=== PATIENT | female | born 2000 | race African-American/Black ===

== ENCOUNTER 2020-08-19 00:32 | Emergency (ER) | payer OTHER ==
--- NOTE | 2020-08-19 01:06 | ER Document Report ---
ED Medical Screen (RME) - General Chief Complaint: Flank Pain Stated Complaint: BLOOD IN URINE,ABDOMINAL PAIN Time Seen by Provider: 08/19/20 01:02 Primary Care Provider: ES GARCIA [Primary Care Provider] - Follow up as needed Notes: HPI: 20-year-old female presenting with pelvic pain, dysuria and hematuria when she wipes over the last week. Also with some left flank pain. Has not had nausea vomiting or diarrhea. Has not had a fever. Patient reports she was on Depo-Provera last year has not had a menstrual cycle anytime she can remember and recently started back becoming sexually active without any other control. Did not take a test prior to coming to the ER. Denies vaginal bleeding or discharge PHYSICAL EXAMINATION: There is no CVA tenderness on palpation. Mild tenderness across the entire pelvis on palpation I have greeted and performed a rapid initial assessment of this patient. A comprehensive ED assessment and evaluation of the patient, analysis of test results and completion of medical decision making process will be conducted by an additional ED providers. Physical Exam - Vital signs Vitals: Temp Pulse Resp BP Pulse Ox 98.2 F 84 15 111/60 99 08/19/20 00:38 08/19/20 00:38 08/19/20 00:38 08/19/20 00:38 08/19/20 00:38 Course - Vital Signs Vital signs: Temp Pulse Resp BP Pulse Ox 98.2 F 84 15 111/60 99 08/19/20 00:38 08/19/20 00:38 08/19/20 00:38 08/19/20 00:38 08/19/20 00:38 Doctor's Discharge - Discharge Referrals: ES GARCIA [Primary Care Provider] - Follow up as needed
[2020-08-19 01:45] LABS: APPEARANCE,URINE CLOUDY; BILIRUBIN,URINE NEGATIVE (NEGATIVE); COLOR,URINE YELLOW; GLUCOSE, URINE NEGATIVE (NEGATIVE); KETONES,URINE NEGATIVE (NEGATIVE); LEUKOCYTE ESTERASE,URINE LARGE (NEGATIVE); NITRITE,URINE NEGATIVE (NEGATIVE); PROTEIN,URINE 100 mg/dL (NEGATIVE); URINE SPECIFIC GRAVITY 1.021; UROBILINOGEN,URINE NEGATIVE mg/dL (<2.0)
[2020-08-19] MEDS ORDERED: CEPHALEXIN 500 MG CAPSULE PO ONE (03:18)
--- NOTE | 2020-08-19 03:22 | ER Document Report ---
HPI - HPI Time Seen by Provider: 08/19/20 01:02 Pain Level: 3 Context: Patient is a 20-year-old female comes emergency department for chief complaint of painful urination, pain in the mid to lower pelvic area in the center, and some blood in the urine when she wipes. Symptoms started 1 week ago. She denies flank pain, nausea, vomiting, fever/chills. Patient was on Depo-Provera previously, states she is slightly late on her menstrual cycle, saw a little bit of brownish vaginal discharge and believes she is about to start. She is also recently sexually active again. She denies abnormal vaginal discharge. She denies any new medications or past medical history otherwise. - CONSTITUTIONAL Constitutional: DENIES: Fever, Chills - EENT EENT: DENIES: Sore Throat, Ear Pain, Eye problems - NEURO Neurology: DENIES: Headache, Weakness, Vision blurred, Dizzinesss / Vertigo - CARDIOVASCULAR Cardiovascular: DENIES: Chest pain - RESPIRATORY Respiratory: DENIES: Trouble Breathing, Coughing - GASTROINTESTINAL Gastrointestinal: REPORTS: Abdominal Pain. DENIES: Black / Bloody Stools - URINARY Urinary: REPORTS: Dysuria, Urgency, Frequency - MUSCULOSKELETAL Musculoskeletal: DENIES: Extremity pain Past Medical History - General Information source: Patient - Social History Smoking Status: Never Smoker Chew tobacco use (# tins/day): No Frequency of alcohol use: Occasional Drug Abuse: None Lives with: Family Family History: Reviewed & Not Pertinent Patient has homicidal ideation: No - Medical History Medical History: Negative Surgical Hx: Negative - Immunizations Immunizations up to date: Yes Hx Diphtheria, Pertussis, Tetanus Vaccination: Yes Vertical Provider Document - CONSTITUTIONAL General Appearance: WD/WN, No Apparent Distress - HEENT HEENT: Atraumatic, Normal ENT Exam, Normocephalic - NECK Neck: Normal Inspection - RESPIRATORY Respiratory: Breath Sounds Normal, No Respiratory Distress - CARDIOVASCULAR Cardiovascular: Regular Rate, Regular Rhythm - GI/ABDOMEN Gastrointestinal: Abdomen Soft. negative: Abdomen Non-Tender - There is mild tenderness mainly over the suprapubic area and minimally over the general pelvic area. No guarding, rebound tenderness, distention, or rigidity. - BACK Back: Normal Inspection. negative: CVA Tenderness-Right, CVA Tenderness-Left - MUSCULOSKELETAL/EXTREMETIES Musculoskeletal/Extremeties: MAEW, FROM, Non-Tender - NEURO Level of Consciousness: Awake, Alert, Appropriate Motor/Sensory: No Motor Deficit, No Sensory Deficit - DERM Integumentary: Warm, Dry, No Rash Course - Re-evaluation Re-evalutation: Patient with dysuria, suprapubic tenderness mainly, urinary tract infection noted, test negative. No signs of distress, no vomiting, fever, current complaints of pain, she states is the worst when she urinates. Nonspecific vaginal discharge that is not discolored per patient. Patient states she is not certain that she was not exposed to an STD recently however. Discussed options. I did offer pelvic exam, eventually patient chose to give urine sample for gonorrhea and chlamydia and if this is positive she'll be contacted at [phone]. Treated for UTI, culture placed, stable and well- appearing without any symptoms at time of discharge. 08/19/20 07:30 Gonorrhea and Chlamydia were both positive. I called patient twice, then I left a message instructing her that her tests were positive and that she and her partner needed to be treated. - Vital Signs Vital signs: Temp Pulse Resp BP Pulse Ox 98.2 F 84 15 111/60 99 08/19/20 01:03 08/19/20 00:38 08/19/20 00:38 08/19/20 00:38 08/19/20 00:38 - Laboratory Laboratory results interpreted by me: 08/19/20 01:15 Urine Protein 100 H Urine Blood LARGE H Ur Leukocyte Esterase LARGE H Discharge - Discharge Clinical Impression: Dysuria, Cystitis Condition: Stable Disposition: HOME, SELF-CARE Additional Instructions: Your evaluation is consistent with a bladder infection (cystitis). Take the antibiotics as prescribed to completion, when you do complete this take the Diflucan to avoid yeast infection. Follow-up with primary care. Return if you worsen including severe worsening pain, vomiting, fever, etc. Prescriptions: Fluconazole [Diflucan] 150 mg PO ONCE PRN #3 tablet PRN Reason: Cephalexin Monohydrate [Keflex 500 mg Capsule] 500 mg PO BID 7 Days #14 capsule Forms: Return to Work
[2020-08-19 03:31] VITALS: BP 104/72
[2020-08-19 07:31] LABS: CHLAM PCR DETECTED (NOT DETECT)
== END 2020-08-19 03:31 | disposition home or self-care (01) ==
LOC: ER 00:32
DX: N30.91 Cystitis, unspecified with hematuria (principal); A54.9 Gonococcal infection, unspecified; A74.9 Chlamydial infection, unspecified
CPT/HCPCS: 81001; 81025; 87086; 87088; 87186; 87491; 87591; 99283

== ENCOUNTER 2020-08-19 09:12 | Emergency (ER) | payer OTHER ==
[2020-08-19 09:23] VITALS: BP 109/69
== END 2020-08-19 09:48 | disposition left against medical advice (07) ==
LOC: ER 09:12
DX: Z53.21 Procedure and treatment not carried out due to patient leaving prior to being seen by health care provider (principal)

== ENCOUNTER 2020-09-29 23:00 | Emergency (ER) | payer OTHER ==
[2020-09-30] MEDS ORDERED: ACETAMINOPHEN 325 MG TABLET PO ONE (00:24)
--- NOTE | 2020-09-30 00:26 | ER Document Report ---
ED Medical Screen (RME) - General Chief Complaint: Facial Injury Stated Complaint: FOREHEAD LACERATION Time Seen by Provider: 09/30/20 00:18 Mode of Arrival: Ambulatory Information source: Patient Notes: HPI; 20-year-old female presents to the emergency room with a laceration to her mid forehead. Patient states she walked into a door hitting her face falling to the ground and passing out. She is complaining of a headache, pain to her face. No meds prior to arrival. States her tetanus is up-to-date. Denies PE: Alert and oriented x3. PERRLA, EOMI 2 cm vertical laceration noted to the front forehead. There is a hematoma noted to the mid frontal forehead. There is tenderness over the nose. There is no obvious deformities noted. No soto signs, no raccoon eyes. Lungs: Clear to auscultation without rales, rhonchi, wheezes. Heart: Regular rate rhythm without murmurs, rubs, gallops. I have greeted and performed a rapid initial assessment of this patient. A comprehensive ED assessment and evaluation of the patient, analysis of test results and completion of the medical decision making process will be conducted by additional ED providers. I have specifically instructed the patient or family members with the patient to immediately return to any nursing staff should anything change in the patient's condition or with their chief complaint. TRAVEL OUTSIDE OF THE [place] IN LAST 30 DAYS: No - Related Data Allergies/Adverse Reactions: No Known Drug Allergies Allergy (Verified 09/30/20 00:23) Past Medical History - Immunizations Immunizations up to date: Yes Hx Diphtheria, Pertussis, Tetanus Vaccination: Yes Physical Exam - Vital signs Vitals: Temp Pulse Resp BP Pulse Ox 98.2 F 80 16 122/68 100 09/29/20 23:03 09/29/20 23:03 09/29/20 23:03 09/29/20 23:03 09/29/20 23:03 Course - Vital Signs Vital signs: Temp Pulse Resp BP Pulse Ox 98.2 F 80 16 122/68 100 09/29/20 23:03 09/29/20 23:03 09/29/20 23:03 09/29/20 23:03 09/29/20 23:03
--- NOTE | 2020-09-30 01:04 | RADIOLOGY REPORT (SQ) ---
CT of the head: 09/30/2020 12:01 AM SAMPLE SUPERVISOR HISTORY: 20-year-old patient with trauma, headache. COMPARISON: None available TECHNIQUE: Multiple axial contiguous images were obtained through the head without intravenous contrast administered. This exam was performed according to our departmental dose-optimization program, which includes automated exposure control, adjustment of the mA and/or KV according to the patient's size and/or use of iterative reconstruction technique. FINDINGS: The ventricles are within normal limits for size. Both globes appear symmetric. The mastoid air cells appear clear. The visualized paranasal sinuses appear clear. The calvarium is intact. No extra-axial fluid collection is seen. The thornton-white matter differentiation is within normal limits. No midline shift or mass effect is apparent. There are no findings to suggest acute intracranial hemorrhage. IMPRESSION: No acute intracranial hemorrhage is seen.
--- NOTE | 2020-09-30 01:07 | RADIOLOGY REPORT (SQ) ---
CT OF THE FACE: 09/30/2020 12:05 AM DRAFTER PATENT TECHNIQUE: Axial helical images were obtained through the face without intravenous contrast administered. Coronal and sagittal reformatted images were also obtained and examined. This exam was performed according to our departmental dose-optimization program, which includes automated exposure control, adjustment of the mA and/or KV according to the patient's size and/or use of iterative reconstruction technique. COMPARISON: None available HISTORY: 20-year old patient with trauma. FINDINGS: The visualized paranasal sinuses appear clear. The mandible is intact. The temporomandibular joints appear to be intact. The bilateral zygomatic arches appear to be intact. The visualized mastoid air cells appear clear. There are no findings to suggest an acute fracture or subluxation. No fluid is seen in the mastoid air cells. The bilateral globes appear symmetric. IMPRESSION: There are no findings to suggest an acute fracture or subluxation within the face.
--- NOTE | 2020-09-30 01:17 | RADIOLOGY REPORT (SQ) ---
CT CERVICAL SPINE: 09/30/2020 12:13 AM SALESPERSON CORSETS TECHNIQUE: Axial contiguous images were obtained through the cervical spine without intravenous contrast. Sagittal and coronal reconstructions were also reviewed. This exam was performed according to our departmental dose-optimization program, which includes automated exposure control, adjustment of the mA and/or KV according to the patient's size and/or use of iterative reconstruction technique. COMPARISON: None available INDICATION: 20-year old patient with neck pain, trauma. FINDINGS: The vertebral bodies appear well aligned. The vertebral body heights appear well maintained. No significant pre-vertebral soft tissue swelling is noted. No definite fracture or subluxation is noted. No significant intervertebral disc space narrowing is seen. The visualized brain parenchyma appears unremarkable. The craniocervical junction is unremarkable. IMPRESSION: There are no findings to suggest an acute fracture or subluxation within the cervical spine.
[2020-09-30] MEDS ORDERED: LIDOCAINE 1%/EPINEPHRINE INJ 20 ML VIAL INJ ONE (03:05)
[2020-09-30] MEDS ORDERED: ACETAMINOPHEN 325 MG TABLET ONE (03:12)
--- NOTE | 2020-09-30 04:17 | ER Document Report ---
ED General - General Chief Complaint: Facial Injury Stated Complaint: FOREHEAD LACERATION Time Seen by Provider: 09/30/20 00:18 Mode of Arrival: Ambulatory Information source: Parent TRAVEL OUTSIDE OF THE [place] IN LAST 30 DAYS: No - Related Data Allergies/Adverse Reactions: No Known Drug Allergies Allergy (Verified 09/30/20 00:23) Past Medical History - General Information source: Patient - Social History Smoking Status: Never Smoker Cigarette use (# per day): No Chew tobacco use (# tins/day): No Frequency of alcohol use: None Drug Abuse: None Lives with: Family Family History: Reviewed & Not Pertinent - Past Medical History Cardiac Medical History: Reports: None Pulmonary Medical History: Reports: None EENT Medical History: Reports: None Neurological Medical History: Reports: None Endocrine Medical History: Reports: None Renal/ Medical History: Reports: None Malignancy Medical History: Reports: None GI Medical History: Reports: None Musculoskeletal Medical History: Reports None Skin Medical History: Reports None Psychiatric Medical History: Reports: None Traumatic Medical History: Reports: None Infectious Medical History: Reports: None Past Surgical History: Reports: None - Immunizations Immunizations up to date: Yes Hx Diphtheria, Pertussis, Tetanus Vaccination: Yes Review of Systems - Review of Systems Notes: Constitutional: Negative for fever. HENT: Negative for sore throat. Eyes: Negative for visual changes. Cardiovascular: Negative for chest pain. Respiratory: Negative for shortness of breath. Gastrointestinal: Negative for abdominal pain, vomiting or diarrhea. Genitourinary: Negative for dysuria. Musculoskeletal: Negative for back pain. Skin: Positive for facial laceration. Neurological: Negative for headaches, weakness or numbness. 10 point ROS negative except as marked above and in HPI. Physical Exam - Vital signs Vitals: Temp Pulse Resp BP Pulse Ox 98.2 F 80 16 122/68 100 09/29/20 23:03 09/29/20 23:03 09/29/20 23:03 09/29/20 23:03 09/29/20 23:03 - Notes Notes: CONSTITUTIONAL: Well appearing in no acute distress SKIN: There is a 1.5 cm laceration vertically across the center of the forehead. EYES: Extraocular movements are grossly intact, clear conjunctiva HENT: Normocephalic, atraumatic, moist mucus membranes NECK: No obvious swelling, normal range of motion PULMONARY: Normal chest rise and fall, no respiratory distress or stridor CARDIOVASCULAR: Regular rate, distal extremities are warm and well perfused NEUROLOGIC: Normal speech, moves all extremities MUSCULOSKELETAL: No gross deformities, atraumatic PSYCHIATRIC: Normal mood and affect Course - Re-evaluation Re-evalutation: 09/30/20 04:21 Rechecked patient who has responded well to treatment in the ER. Discussed with patient: results, diagnosis, treatment plan, and need for follow-up. Return to the emergency department warnings were given. All questions and concerns were addressed. The plan is agreed with and understood. Patient is stable and ready for discharge. - Vital Signs Vital signs: Temp Pulse Resp BP Pulse Ox 98.2 F 80 16 122/68 100 09/29/20 23:03 09/29/20 23:03 09/29/20 23:03 09/29/20 23:03 09/29/20 23:03 - Laboratory Results Critical Laboratory Results Reviewed: No Critical Results - Radiology Results Critical Radiology Results Reviewed: No Critical Results Procedures - Laceration/Wound Repair Face Wound length (cm): 1.5 Wound's Depth, Shape: Superficial, Linear Laceration pre-procedure: Sterile PPE donned, Sterile drapes applied, Shur-Clens applied Anesthetic type: 1% Lidocaine w/epi Volume Anesthetic (mLs): 2 Wound explored: Clean Irrigated w/ Saline (mLs): 20 Wound Debrided: Minimal Wound Repaired With: Sutures Suture Size/Type: 5:0, Ethilon Number of Sutures: 3 Layer Closure?: No Post-procedure NV exam normal: No Complications: No Discharge - Discharge Clinical Impression: Facial laceration Qualifiers: Encounter type: initial encounter Qualified Code(s): S01.81XA - Laceration without foreign body of other part of head, initial encounter Condition: Stable Disposition: HOME, SELF-CARE Instructions: Laceration Care ([facility]) Additional Instructions: Return to the ER or follow up with PCP for suture removal in 7-10 days. Forms: Return to Work
[2020-09-30 04:28] VITALS: BP 101/70
== END 2020-09-30 04:28 | disposition home or self-care (01) ==
LOC: ER 09-30 03:46
DX: S01.81XA Laceration without foreign body of other part of head, initial encounter (principal); W22.01XA Walked into wall, initial encounter
CPT/HCPCS: 99284; 70450; 70486; 72125; 12011; J3490

== ENCOUNTER 2020-10-07 12:22 | Emergency (ER) | payer OTHER ==
[2020-10-07 13:13] VITALS: BP 99/57
--- NOTE | 2020-10-07 14:13 | ER Document Report ---
ED Suture/Wound Recheck - General Chief Complaint: Suture Removal Stated Complaint: SUTURE REMOVAL Time Seen by Provider: 10/07/20 14:04 Mode of Arrival: Ambulatory Information source: Patient TRAVEL OUTSIDE OF THE [place] IN LAST 30 DAYS: No - HPI Patient complains to provider of: Suture removal Notes: Patient with complaints of needing sutures removed from her forehead. She states that these were placed 7 days ago. She denies any fever, pain, redness, drainage. She denies any nausea, vomiting, diarrhea. No severe headache. No blurred or loss of vision. No drainage. States that this wound has healed well. She has no other complaints at this time. - Related Data Allergies/Adverse Reactions: No Known Drug Allergies Allergy (Verified 09/30/20 00:23) Past Medical History - Social History Smoking Status: Never Smoker Frequency of alcohol use: None Drug Abuse: None Family History: Reviewed & Not Pertinent - Immunizations Immunizations up to date: Yes Hx Diphtheria, Pertussis, Tetanus Vaccination: Yes Review of Systems - Review of Systems -: Yes All other systems reviewed and negative Physical Exam - Vital signs Vitals: Temp Pulse Resp BP Pulse Ox 99.0 F 98 20 99/57 L 100 10/07/20 13:10 10/07/20 13:10 10/07/20 13:10 10/07/20 13:10 10/07/20 13:10 - Notes Notes: GENERAL: alert, cooperative, nontoxic, no distress. HEAD: normocephalic, atraumatic EYES: conjunctiva pink without discharge, no external redness or swelling. EARS: no external swelling, no external redness NOSE: atraumatic, no external swelling MOUTH/THROAT: mucous membranes moist and pink NECK: soft, supple, full range of motion, no meningismus. CHEST: no distress, lungs clear and equal throughout. No wheezing, rales, rhonchi. CARDIAC: regular rate and rhythm, no murmur, normal capillary refill, normal pulses. BACK: full range of motion, no CVA tenderness. EXTREMITIES: full range of motion of all extremities. No redness, no swelling. NEURO: alert and oriented 3, no focal deficits, full range of motion of all extremities. PYSCH: appropriate mood, affect. Patient is cooperative. SKIN: pink, warm, dry, no rash. Healed laceration to the forehead between the eyebrows. [address] No redness, tenderness, swelling, drainage. Course - Re-evaluation Re-evalutation: 10/07/20 14:14 Patient is nontoxic-appearing stable vitals. Here with complaints of needing sutures removed. Patient has a well-healed laceration to her forehead with [address] There is no signs of infection. The patient has no other complaints. Sutures will be removed and patient will be discharged home. Follow-up for increased pain, fever, redness, drainage, any further concerns. - Vital Signs Vital signs: Temp Pulse Resp BP Pulse Ox 99.0 F 98 20 99/57 L 100 10/07/20 13:10 10/07/20 13:10 10/07/20 13:10 10/07/20 13:10 10/07/20 13:10 - Laboratory Results Critical Laboratory Results Reviewed: No Critical Results - Radiology Results Critical Radiology Results Reviewed: No Critical Results Discharge - Discharge Clinical Impression: Encounter for removal of sutures Condition: Stable Disposition: HOME, SELF-CARE Instructions: Suture Removal Additional Instructions: Keep wound clean and dry. Follow-up for increased pain, fever, redness, drainage, any further concerns. Referrals: [facility] [Provider Group] - Follow up as needed
== END 2020-10-07 14:22 | disposition home or self-care (01) ==
LOC: ER 12:22
DX: S01.81XD Laceration without foreign body of other part of head, subsequent encounter (principal); W22.8XXD Striking against or struck by other objects, subsequent encounter